=== PATIENT | female | born 1985 | race Two or more races ===

== ENCOUNTER 2021-07-24 17:45 | Emergency (ER) | payer BC, OTHER ==
[~2021-07-24] VITALS: Ht 170.2 cm; Wt 61.2 kg
[2021-07-24] MEDS ORDERED: IV NORMAL SALINE 1000 ML BAG IV ONE (18:30)
[2021-07-24 18:56] LABS: HEMATOCRIT 38.6 % (31.2-41.9); MEAN CORPUSCULAR HEMOGLOBIN 27.5 uug (24.7-32.8); MEAN CORPUSCULAR VOLUME 83.3 fL (75.5-95.3); PLATELET COUNT (AUTO) 412 K/uL (179-408)
[2021-07-24 19:01] LABS: CREATININE 0.8 mg/dL (0.6-1.3); POTASSIUM 3.9 mmol/L (3.5-5.1)
[2021-07-24 19:07] LABS: BILIRUBIN,DIRECT 0.1 mg/dL (0.0-0.2); BILIRUBIN,TOTAL 0.2 mg/dL (0.2-1.0); TOTAL PROTEIN, SERUM 7.7 g/dL (6.4-8.2)
--- NOTE | 2021-07-24 19:09 | NUR ---
Dr. Bourgeois at bedside, MSE in progress.
--- NOTE | 2021-07-24 19:09 | NUR ---
1853pm: 1st contact with patient Patient was brought to ER bed 2A by triage/foam chargerSTELLA Vu. Patient is Aox4, calm & breathing easily, c/o multiple diarrhea episodes for 3 days with generalized weakness, no nausea, no vomiting, pending MD evaluation 1909pm: IV fluids infusing well, blood & urine specimens in lab, pending results
[2021-07-24 19:10] LABS: *BILIRUBIN,URIN NEGATIVE (NEGATIVE); *BLOOD, URINE NEGATIVE (NEGATIVE); *CLARITY,URINE CLEAR (CLEAR); *COLOR,URINE YELLOW (YELLOW); *KETONES,URINE NEGATIVE (NEGATIVE); *UROBILINOGEN,URINE 0.2 E.U./dl (NORMAL); LEUKOCYTE ESTERASE ,URINE NEGATIVE (NEGATIVE); NITRITE, URINE NEGATIVE (NEGATIVE); PH,URINE 7.5 (5.0-8.0); UGLUCOSE NEGATIVE (NEGATIVE)
[2021-07-24 19:11] LABS: *URINE HCG, QUAL NEGATIVE (NEGATIVE)
[2021-07-24] MEDS ORDERED: LITH600C PO (19:24)
[2021-07-24] MEDS ORDERED: OLAN7.5T3 PO (19:24)
--- NOTE | 2021-07-24 19:37 | NUR ---
PT TAKEN DOWN FOR CT.
--- NOTE | 2021-07-24 19:55 | NUR ---
PT RETURNED FROM CT, STABLE CONDITION.
[2021-07-24] MEDS ORDERED: ONDA4TAB5 PO (20:39)
--- NOTE | 2021-07-24 20:54 | NUR ---
Patient discharged to home in stable condition. A/O x4, denies any pain/discomfort upon discharge. no n/v/d. Written and verbal after care instructions given. Patient verbalizes understanding of instructions. Stressed follow up or return to ER for worsening s/s. Steady gait.
[2021-07-24 20:55] VITALS: BP 115/70
== END 2021-07-24 20:50 | disposition home or self-care (01) ==
LOC: ER 17:50
DX: R19.7 Diarrhea, unspecified (principal); R11.0 Nausea; F31.9 Bipolar disorder, unspecified; F10.21 Alcohol dependence, in remission; Z86.19 Personal history of other infectious and parasitic diseases; Z79.899 Other long term (current) drug therapy
CPT/HCPCS: 36415; 83690; 84703; 85025; A4663